=== PATIENT | male | born 1970 | race Caucasian/White ===

== ENCOUNTER 2018-08-15 16:07 | Emergency (ER) | payer OTHER ==
[2018-08-15] MEDS ORDERED: NS 500 ML IV ONE (16:33)
[2018-08-15] MEDS ORDERED: FAMOTIDINE 20 MG/NACL 50 ML IV ONE (16:34)
[2018-08-15] MEDS ORDERED: ONDANSETRON 4 MG/2 ML VIAL IVP ONE (16:34)
[2018-08-15 16:48] LABS: PLATELET COUNT 242 10^3/uL (150-400)
[2018-08-15 17:12] LABS: INR 0.98 (0.83-1.16); PROTIME(PATIENT) 13.2 SEC (12.0-15.0)
--- NOTE | 2018-08-15 17:17 | EDPHY ---
H & P Time Seen by Provider: 08/15/18 16:32 HPI/ROS: HPI Left shoulder pain, fever, chills, indigestion. 48-year-old male by private vehicle. This patient reports that he slipped and fell awkwardly on his left shoulder on Tuesday evening. He reports that on Tuesday he was at the gym and was working out and he noticed that he had some progressive soreness in his left shoulder. He describes this as a generalized shortness soreness. He reports that last night he had an episode of what he describes as indigestion and burning in his epigastric area with radiation up through his mid lower chest that lasted about 5 sec after he ate some pepperoni pizza and was trying to go to sleep. He also reports that he has had a sensation of fever and chills since last night as well. He does not have any significant cardiac risk factors. ROS: Constitutional: No fever, no chills. As above. Eyes: No discharge. No changes in vision. ENT: No sore throat. No nasal congestion or rhinorrhea. Respiratory: No cough. No shortness of breath. Cardiac: As above, no palpitations. Gastrointestinal: As above, no vomiting, no diarrhea. Genitourinary: No hematuria. No dysuria or increased frequency with urination. Musculoskeletal: No back pain. No neck pain. As above. No other extremity pain. Skin: No rashes. Neurological: No headache. No focal weakness or altered sensation. Past medical history: He denies any significant past medical history. He is not on any prescription medications. Social history: Nonsmoker. He is here by himself. Physical Exam: General Appearance: Alert, no distress. This patient is responding to questions appropriately and in full sentences. This patient appears well- hydrated and well-nourished. Eyes: Pupils equal and round no pallor or injection. No lid edema, erythema or injection. ENT, Mouth: Mucous membranes are moist. The pharyngeal tissues are unremarkable. No edema or swelling. No asymmetry suggestive of abscess. No erythema or exudates. Respiratory: There are no retractions, lungs are clear to auscultation with good air movement bilaterally. Cardiovascular: Regular rate and rhythm. No murmur. Gastrointestinal: Abdomen is soft and nontender, no masses, bowel sounds normal. No focal tenderness at McBurney's point. No Sahu sign. Neurological: Motor sensory function is grossly intact. Cranial nerves are normal. Gait is normal. Skin: Warm and dry, no rashes. Musculoskeletal: Neck is supple and nontender. No midline cervical or thoracic tenderness on palpation. Extremities are symmetrical. All joints range without pain or impingement. Examination of the left shoulder specifically, the axillary nerve distribution is intact. The left upper extremity is neurovascularly intact. The left glenohumeral joint ranges without any significant pain or impingement. There is no tenderness on palpation over the left AC joint. The clavicle is nontender on palpation. Psychiatric: No agitation. No depression. Database: EKG: EKG time is 4:49 p.m.; EKG shows a narrow complex normal sinus rhythm with a ventricular rate of 94. Borderline right axis deviation noted. The PA, QRS, QT intervals are within normal limits. There are no ST-T wave changes indicative of ischemic or injury pattern. No evidence of right heart strain. Interpreted by me. Imaging: Chest x-ray PA and lateral; the cardiac mediastinal silhouette is unremarkable. No evidence of infiltrate or pneumothorax. No acute cardiopulmonary disease process noted. Interpreted by me. Left shoulder x-ray series: Negative for fracture, subluxation, dislocation. Interpreted by me. Procedures: Emergency department course: Triage vital signs reviewed and are normal. He is low risk by heart score. His presentation is most consistent with GERD, a viral syndrome and a musculoskeletal etiology of his left shoulder pain. 6:15 p.m., patient re-evaluated, resting comfortably in reading a book at this time. His vital signs have remained normal. His diagnostic workup has been reassuring. Results of his diagnostic testing in the emergency department reviewed with him thoroughly. He feels comfortable going home and I feel he is safe for discharge. Follow-up and return to emergency department precautions reviewed with him. All of his questions were answered. He was discharged from the emergency department in good condition. Differential Diagnosis: The differential diagnosis on this patient includes but is not limited to left shoulder strain, GERD, viral syndrome. Acute coronary syndrome, left shoulder fracture/subluxation/dislocation, serious bacterial infection unlikely. This represents a partial list of diagnoses considered. These considerations are based on history, physical exam, past history, reassessment and diagnostic testing. Smoking Status: Never smoked Constitutional: Initial Vital Signs Temperature (C) 37.5 C 08/15/18 16:10 Heart Rate 94 08/15/18 16:10 Respiratory Rate 18 08/15/18 16:10 Blood Pressure 136/108 H 08/15/18 16:10 O2 Sat (%) 95 08/15/18 16:10 O2 Delivery Mode Room Air Allergies/Adverse Reactions: No Known Allergies Allergy (Verified 08/15/18 16:09) Home Medications: Medication Instructions Recorded Atorvastatin Calcium 08/15/18 Medical Decision Making - Diagnostics Imaging Results: Imaging Impressions Chest X-Ray 08/15/18 16:33 Impression: No acute abnormality. Shoulder X-Ray 08/15/18 16:35 Impression: Mild degenerative osteoarthritis of the acromioclavicular joint, with no acute osseous abnormality. Query left glenohumeral joint effusion. If there is further clinical concern regarding the patient's shoulder pain, MR imaging could be considered. - Data Points Laboratory Results: Laboratory Results 08/15/18 16:40 08/15/18 16:40 08/15/18 08/15/18 08/15/18 17:10 16:40 16:40 WBC RBC Hgb Hct MCV MCH MCHC RDW Plt Count MPV Neut % (Auto) Lymph % (Auto) Perry % (Auto) Eos % (Auto) Baso % (Auto) Nucleat RBC Rel Count Absolute Neuts (auto) Absolute Lymphs (auto) Absolute Monos (auto) Absolute Eos (auto) Absolute Basos (auto) Absolute Nucleated RBC Immature Gran % Immature Gran # PT INR APTT Sodium 138 mEq/L mEq/L (135-145) Potassium 4.1 mEq/L mEq/L (3.5-5.2) Chloride 105 mEq/L mEq/L (97-110) Carbon Dioxide 23 mEq/l mEq/l (22-31) Anion Gap 10 mEq/L mEq/L (6-14) BUN 20 mg/dL mg/dL (7-23) Creatinine 1.0 mg/dL mg/dL (0.7-1.3) Estimated GFR > 60 Glucose 104 mg/dL H mg/dL (70-100) Calcium 9.7 mg/dL mg/dL (8.5-10.4) Total Bilirubin 0.5 mg/dL mg/dL (0.1-1.4) Conjugated Bilirubin 0.3 mg/dL mg/dL (0.0-0.5) Unconjugated Bilirubin 0.2 mg/dL mg/dL (0.0-1.1) AST 30 IU/L IU/L (17-59) ALT 75 IU/L H IU/L (21-72) Alkaline Phosphatase 69 IU/L IU/L (38-126) POC Troponin I 0.00 ng/mL ng/mL (0.00-0.08) Total Protein 7.5 g/dL g/dL (6.3-8.2) Albumin 4.3 g/dL g/dL (3.5-5.0) Nasal Influenza A PCR NEGATIVE FOR FLU A (NEGATIVE) Nasal Influenza B PCR NEGATIVE FOR FLU B (NEGATIVE) 08/15/18 08/15/18 16:40 16:40 WBC 10.50 10^3/uL H 10^3/uL (3.80-9.50) RBC 4.97 10^6/uL 10^6/uL (4.40-6.38) Hgb 15.3 g/dL g/dL (13.7-17.5) Hct 44.0 % % (40.0-51.0) MCV 88.5 fL fL (81.5-99.8) MCH 30.8 pg pg (27.9-34.1) MCHC 34.8 g/dL g/dL (32.4-36.7) RDW 12.7 % % (11.5-15.2) Plt Count 242 10^3/uL 10^3/uL (150-400) MPV 9.6 fL fL (8.7-11.7) Neut % (Auto) 79.5 % H % (39.3-74.2) Lymph % (Auto) 14.1 % L % (15.0-45.0) Perry % (Auto) 5.1 % % (4.5-13.0) Eos % (Auto) 0.4 % L % (0.6-7.6) Baso % (Auto) 0.2 % L % (0.3-1.7) Nucleat RBC Rel Count 0.0 % % (0.0-0.2) Absolute Neuts (auto) 8.35 10^3/uL H 10^3/uL (1.70-6.50) Absolute Lymphs (auto) 1.48 10^3/uL 10^3/uL (1.00-3.00) Absolute Monos (auto) 0.54 10^3/uL 10^3/uL (0.30-0.80) Absolute Eos (auto) 0.04 10^3/uL 10^3/uL (0.03-0.40) Absolute Basos (auto) 0.02 10^3/uL 10^3/uL (0.02-0.10) Absolute Nucleated RBC 0.00 10^3/uL 10^3/uL (0-0.01) Immature Gran % 0.7 % % (0.0-1.1) Immature Gran # 0.07 10^3/uL 10^3/uL (0.00-0.10) PT 13.2 SEC SEC (12.0-15.0) INR 0.98 (0.83-1.16) APTT 31.0 SEC SEC (23.0-38.0) Sodium Potassium Chloride Carbon Dioxide Anion Gap BUN Creatinine Estimated GFR Glucose Calcium Total Bilirubin Conjugated Bilirubin Unconjugated Bilirubin AST ALT Alkaline Phosphatase POC Troponin I Total Protein Albumin Nasal Influenza A PCR Nasal Influenza B PCR Medications Given: Discontinued Medications Sodium Chloride (Ns) 500 mls @ 1,000 mls/hr IV EDNOW ONE PRN Reason: Protocol Stop: 08/15/18 17:02 Last Admin: 08/15/18 16:41 Dose: 500 mls Famotidine/Sodium Chloride (Pepcid 20 Mg (Premix)) 50 mls @ 200 mls/hr IV EDNOW ONE Stop: 08/15/18 16:48 Last Admin: 08/15/18 16:41 Dose: 50 mls Ondansetron HCl (Zofran) 4 mg IVP EDNOW ONE Stop: 08/15/18 16:35 Last Admin: 08/15/18 16:41 Dose: 4 mg Point of Care Test Results: Chemistry 08/15/18 16:40 POC Troponin I 0.00 ng/mL ng/mL (0.00-0.08) Departure - Departure Disposition: Home, Routine, Self-Care Clinical Impression: Left shoulder strain, Viral syndrome, GERD (gastroesophageal reflux disease) Condition: Good Instructions: Shoulder Sprain (ED), Viral Syndrome (ED) Additional Instructions: Read and follow provided instructions. Follow-up with your primary care physician in 1-2 days for re-evaluation. Avoid spicy and fatty foods. Keep well hydrated. Drink lots of fluids. Ibuprofen dosin mg every 6 hours with meals for the next 3 days only. Take only as needed for pain. Avoid activity with your left shoulder that exacerbates pain. Return to the emergency department for worsening symptoms or other serious concerns. Referrals: Luis Alfredo Scanlon MD [Primary Care Provider] - As per Instructions
[2018-08-15 18:38] VITALS: BP 113/78
--- NOTE | 2018-08-15 21:20 | CPEKG ---
Test Reason : OPEN Blood Pressure : / mmHG Vent. Rate : 088 BPM Atrial Rate : 087 BPM P-R Int : 147 ms QRS Dur : 084 ms QT Int : 329 ms P-R-T Axes : 022 050 003 degrees QTc Int : 398 ms Sinus rhythm Borderline T abnormalities, inferior leads Confirmed by Trung Quintero ([id number]) on 08/15/2018 9:19:58 PM Referred By: Confirmed By:Trung Quintero
== END 2018-08-15 18:46 | disposition home or self-care (01) ==
DX: S43.402A Unspecified sprain of left shoulder joint, initial encounter (principal); B34.9 Viral infection, unspecified; K21.9 Gastro-esophageal reflux disease without esophagitis; E86.9 Volume depletion, unspecified; W19.XXXA Unspecified fall, initial encounter; Y92.9 Unspecified place or not applicable; Y93.9 Activity, unspecified; Y99.9 Unspecified external cause status
CPT/HCPCS: 84484-ER; 96374; J2405